=== PATIENT | male | born 2000 ===

== ENCOUNTER 2022-01-12 20:24 | Emergency (ER) | payer OTHER ==
[2022-01-12] MEDS ORDERED: METHOCARBAMOL 500 MG TABLET PO ONE (20:26)
[2022-01-12] MEDS ORDERED: IBUPROFEN 600 MG TABLET (FP) PO ONE (20:26)
[2022-01-12 20:46] VITALS: BP 124/73; PULSE 87; TEMP 98; BMI 17.9
[2022-01-12] MEDS ORDERED: METHOCARBAMOL 500 MG TABLET ONE (20:47)
== END 2022-01-12 21:36 | disposition home or self-care (01) ==
LOC: FER 20:24
DX: S22.49XA Multiple fractures of ribs, unspecified side, initial encounter for closed fracture (principal); W22.8XXA Striking against or struck by other objects, initial encounter
CPT/HCPCS: 71101-TC-RT-FY; 99283-25